=== PATIENT | male | born 1955 | race Native Hawaiian/Other Pacific Islander ===

== ENCOUNTER 2018-11-26 14:22 | Inpatient (IN) | payer OTHER ==
[2018-11-26] VITALS (12 sets, daily range): BP systolic 77–93; BP diastolic 39–59; TEMP 97.7–98.4; Ht 175.3 cm; Wt 66.8 kg
[~2018-11-26] VITALS: Ht 175.3 cm; Wt 66.8 kg
[~2018-11-26 14:22] MED LIST: LISI20TA11 PO
[2018-11-26 16:00] LABS: PLATELET COUNT 337 K/uL (142-355)
[2018-11-26 16:45] LABS: POTASSIUM 5.2 mmol/L (3.6-5.2); SODIUM 137 mmol/L (136-145)
[2018-11-27] VITALS: BP 78/39; TEMP 98.6
--- NOTE | 2018-11-27 00:24 | NUR ---
11/26/182019 PT ADMITTED TO ROOM 1125 DX DEHYDRATION,FAILUR TO THRIVE,LIVER CANCER.HEP C,HEP A. 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 LOWER BRULE HAS CURRENTLY STOPPED TREATMENT.CC
[2018-11-27 04:00] VITALS: BP 80/32; TEMP 97.7
--- NOTE | 2018-11-27 04:07 | NUR ---
11/27/18 021 PATIENT BLOOD PRESSURE CHECKED 76/41 GIVE ORDER TO GIVE NS BOLUS OF 300ML THEN RESUME NS 125ML/HR. 11/27/18 040 NOTOFOED OF PATIENT BLOOD PRESSURE 80/32.ALSO PT C/O OF PAIN.SHE SAID THAT SHE CANNOT GIVE PT ANYTHING FOR PAIN DUE TO LOW PRESSURE AND ALSO OF PT LIVER NOT FUNCUNATING WELL.WARM BLANKEY GIVE TO PT TO PLACE ON HIM FOR COMFORT.CC
[2018-11-27 08:00] VITALS: BP 83/40; TEMP 97.5
--- NOTE | 2018-11-27 10:34 | NUR ---
PATIENT WAS ADMITTED WITH DEHYDRATION, ADULT FTT, LIVER CANCER AND HEP A AND C. 69" AND IBW 160+/-10% AND KCAL NEEDS - 2200, PRO 73-109 GRAMS AND FLUIDS INCREASE TOLERATED D/T DEHYDRATION. BMI 19.72 WNL'S. RECOMMEND: 1-INCREASE FLUIDS TOLERATED 2- ADD HUMAN ALBULIN 3- ADD VIT C 500 MG BID 4- ADD A MVI 1 PO Q DAY 5- ADD AN APPETITE STIMULANT 6- ADD A SUPPLEMENT OF CHOICE
[2018-11-27 12:00] VITALS: BP 72/35; TEMP 97.5
[2018-11-27 12:00] LABS: POTASSIUM 4.7 mmol/L (3.6-5.2)
[2018-11-27 16:00] VITALS: BP 84/44; TEMP 96.4
[2018-11-27 20:00] VITALS: BP 92/52; TEMP 98.6
[2018-11-28] VITALS: BP 83/43; TEMP 97.7
[2018-11-28 04:00] VITALS: BP 78/40; TEMP 98.3
[2018-11-28 08:00] VITALS: BP 86/32; TEMP 98.6
[2018-11-28] MEDS ORDERED: FENT100D TOP (11:09)
--- NOTE | 2018-11-28 14:15 | NUR ---
PATIENT TAKEN VIA WHEELCHAIR TO POV. PATIENT ASSISTED INTO VECHICLE WITH SOME DIFFICULTY. FAMILY REMAIN WITH PATIENT AT THIS TIME. FAMILY AWARE [facility] WILL BE VISITING THEM SHORTLY AFTER DISCHARGE. FAMILY VOICED UNDERSTANDING.
== END 2018-11-28 14:15 | disposition home or self-care (01) | DRG 436 ==
LOC: ED 14:22 → MED/SURG 18:50 → ED 18:50 → MED/SURG 18:51
PROVIDERS: Internal Medicine; ADMIT Family Medicine
DX: C22.8 Malignant neoplasm of liver, primary, unspecified as to type (principal); C79.51 Secondary malignant neoplasm of bone; N17.8 Other acute kidney failure; I10 Essential (primary) hypertension; K75.89 Other specified inflammatory liver diseases; R53.1 Weakness; R60.1 Generalized edema; E86.0 Dehydration; R41.82 Altered mental status, unspecified
CPT/HCPCS: 36415; 80048; 80053; 81000; 82140; 82150; 82550; 83605; 83690; 84484; 85027; 87040; 93005; 96360; 96365; 96366; 96374; 99284; J3490